=== PATIENT | female | born 1930 | race Caucasian/White ===

== ENCOUNTER → 2016-08-09 | Outpatient (CLI) | payer MEDICARE, OTHER ==
[~2016-08-09] MED LIST: AMLO5TAB2 PO; ASPI1TAB69 PO; CALC500T42 PO; CLON0.1T PO; FENO145T2 PO; FERR325T PO; LOSA50TA2 PO; LOVA20TA PO; MACR100C2 PO; METO50TA PO; OCUVTAB4 PO; POTA10CA PO; VITA500T PO
[2016-08-09 16:44] LABS: ALT (GPT) 25 U/L (10-53); ANION GAP 8 MEQ/L (5-15); AST (GOT) 22 U/L (15-37); BLOOD UREA NITROGEN 33 MG/DL (7-18); CHLORIDE 109 MEQ/L (98-107); GLOMERULAR FILTRATION RATE 41 ML/MIN (>89); GLUCOSE,FASTING 84 MG/DL (74-99); POTASSIUM 4.9 MEQ/L (3.5-5.1); SODIUM (NA) 141 MEQ/L (136-145)
[2016-08-09 16:47] LABS: HEMATOCRIT 43.8 % (35.0-46.0); MEAN CELL VOLUME 87.5 FL (80.0-100.0); MEAN CORPUSCULAR HEMOGLOBIN 29.2 PG (27.0-34.0); MEAN CORPUSCULAR HGB CONC 33.4 % (32.0-36.0); PLATELET COUNT 370 TH/MM3 (150-450); RED BLOOD COUNT 5.01 MIL/MM3 (4.00-5.30); REVIEW FLAG FINAL; WHITE BLOOD COUNT 7.7 TH/MM3 (4.0-11.0)
[2016-08-09 16:54] LABS: ALKALINE PHOSPHATASE 54 U/L (45-117); HDL CHOLESTEROL 51.7 MG/DL (40.0-60.0); LDL CHOLESTEROL 174 MG/DL (0-99); TOTAL BILIRUBIN ADULT 0.5 MG/DL (0.2-1.0)
== END ==
LOC: PLAB 11:09
PROVIDERS: ATTEND Family Medicine
DX: D63.8 Anemia in other chronic diseases classified elsewhere (principal); E78.2 Mixed hyperlipidemia; I49.9 Cardiac arrhythmia, unspecified
CPT/HCPCS: 36415; 80053; 80061; 84443; 85027

== ENCOUNTER 2016-10-02 23:50 | Inpatient (IN) | payer MEDICARE, OTHER ==
[~2016-10-02] VITALS: Ht 165.1 cm; Wt 78.2 kg
[2016-10-03] VITALS (12 sets, daily range): BP systolic 136–216; BP diastolic 74–105; PULSE 53–86; RESP 16–18; TEMP 95.8–98.3; O2SAT 92–99
[2016-10-03] MEDS ORDERED: SODIUM CHLORIDE 0.9% FLUSH 10 ML FLUSH IVF PRN
[2016-10-03] MEDS ORDERED: ONDANSETRON HCL 4 MG/2 ML VIAL IV ONE
[2016-10-03] MEDS ORDERED: ENALAPRILAT 2.5 MG/2 ML VIAL IV PUSH ONE
--- NOTE | 2016-10-03 00:40 | PD ---
HPI Chief Complaint: General Weakness Time Seen by Provider: 23:54 Travel History International Travel<30 days: No Contact w/Intl Traveler<30days: No Traveled to known affect area: No History of Present Illness HPI The patient is an 86-year-old female that felt some midline sharp chest pain yesterday afternoon but this resolved. Later on tonight she got weak and fell to the floor but she did not lose consciousness and she remained conscious during the entire episode. She said she gradually let her self go to the ground and did not hurt herself. Later on she felt nauseated but this has now resolved. She feels fine now. She did not take her blood pressure medicines earlier tonight. She denies any shortness of breath. The patient lives alone at home. PFSH Past Medical History Anemia: Yes Blood Disorders: No Cancer: Yes (skin cancer basal cell ) Cardiovascular Problems: Yes (OK,htn on med) High Cholesterol: Yes Diabetes: No Diminished Hearing: Yes ([place]) Endocrine: No Gastrointestinal Disorders: Yes (HITAL HERNIA) GERD: Yes Glaucoma: No Genitourinary: No Hepatitis: No Hiatal Hernia: Yes Hypertension: Yes Immune Disorder: No Medical other: Yes (arthritis,reflux) Psychiatric: No Reproductive: No Respiratory: No Immunizations Current: Yes Thyroid Disease: No Tetanus Vaccination: Unknown Influenza Vaccination: No ?: Not Menopausal: Yes Past Surgical History Abdominal Surgery: Yes (gallbladder) Cardiac Surgery: No Cholecystectomy: Yes Ear Surgery: No Endocrine Surgery: Yes (RIGHT CTR) Eye Surgery: No Genitourinary Surgery: No Gynecologic Surgery: Yes (d and c) Neurologic Surgery: No Oral Surgery: No Pacemaker: No Thoracic Surgery: No Other Surgery: Yes Social History Alcohol Use: No Tobacco Use: No Substance Use: No Allergies-Medications (Allergen,Severity, Reaction): Coded Allergies: Sulfa (Sulfonamide Antibiotics) (Unverified Allergy, Severe, STOMACH UPSET , 10/03/16) aspirin (Unverified Allergy, Severe, Bleeding, 10/03/16) Reported Meds & Prescriptions Reported Meds & Active Scripts Active Reported Aspirin 81 Mg Chew 81 Mg CHEW DAILY Fluoxetine (Fluoxetine HCl) 20 Mg Capsule 20 Mg PO DAILY Preservision Areds (Multiple Vitamins W/ Minerals) 1 Tab Unknown Dose PO DIRECTED Lovastatin 20 Mg Tab 20 Mg PO DAILY Fenofibrate 145 Mg Tab 145 Mg PO DAILY Amlodipine (Amlodipine Besylate) 5 Mg Tab 5 Mg PO DAILY Losartan-Hydrochlorothiazide 50-12.5 Mg Tab 1 Tab PO DAILY Potassium Chloride ER (Potassium Chloride) 10 Meq Cap 10 Meq PO BID Metoprolol Tartrate 50 Mg Tab 100 Mg PO BID Clonidine (Clonidine HCl) 0.1 Mg Tab 0.1 Mg PO BID Review of Systems Except as stated in HPI: all other systems reviewed are Neg Physical Exam Narrative GENERAL: The patient is alert, oriented 3 in no apparent distress. Initial blood pressure as she just came in was 216/105 but repeat is 166/76. The rest of her vital signs are normal. SKIN: Focused skin assessment warm/dry. No skin rashes present. HEAD: Atraumatic. Normocephalic. EYES: Pupils equal and round. No scleral icterus. No injection or drainage. ENT: No nasal bleeding or discharge. Mucous membranes pink and moist. NECK: Trachea midline. No JVD. CARDIOVASCULAR: Regular rate and rhythm. No murmur appreciated. RESPIRATORY: No accessory muscle use. Clear to auscultation. Breath sounds equal bilaterally. GASTROINTESTINAL: Abdomen soft, non-tender, nondistended. Hepatic and splenic margins not palpable. No guarding or rebound is present. MUSCULOSKELETAL: No obvious deformities. No clubbing. No cyanosis. No edema. NEUROLOGICAL: Awake and alert. No obvious cranial nerve deficits. Motor grossly within normal limits. Normal speech. PSYCHIATRIC: Appropriate mood and affect; insight and judgment normal. Data Data Last Documented VS Vital Signs Date Time Temp Pulse Resp B/P (MAP) Pulse Ox O2 Delivery O2 Flow Rate FiO2 10/03/16 01:05 78 18 185/74 (111) 98 Nasal Cannula 2.00 10/03/16 00:08 98.0 Orders Orders Electrocardiogram (10/02/16 23:54) B-Type Natriuretic Peptide (10/02/16 23:54) Ckmb (Isoenzyme) Profile (10/02/16 23:54) Complete Blood Count With Diff (10/02/16 23:54) Comprehensive Metabolic Panel (10/02/16 23:54) Magnesium (Mg) (10/02/16 23:54) Troponin I (10/02/16 23:54) Ecg Monitoring (10/02/16 23:54) Bilateral Bp Monitoring (10/02/16 23:54) Iv Access Insert/Monitor (10/02/16 23:54) Oximetry (10/02/16 23:54) Oxygen Administration (10/02/16 23:54) Sodium Chloride 0.9% Flush (Ns Flush) (10/03/16 00:00) Chest, Pa & Lat (10/02/16 23:54) Ondansetron Inj (Zofran Inj) (10/03/16 00:00) Enalaprilat Inj (Vasotec Inj) (10/03/16 00:00) Admit Order (Ed Use Only) (10/03/16 02:19) Labs Laboratory Tests Test 10/03/16 00:30 White Blood Count 10.5 TH/MM3 Red Blood Count 5.16 MIL/MM3 Hemoglobin 15.0 GM/DL Hematocrit 44.5 % Mean Corpuscular Volume 86.1 FL Mean Corpuscular Hemoglobin 29.0 PG Mean Corpuscular Hemoglobin Concent 33.6 % Red Cell Distribution Width 12.9 % Platelet Count 363 TH/MM3 Mean Platelet Volume 8.8 FL Neutrophils (%) (Auto) 71.8 % Lymphocytes (%) (Auto) 16.4 % Monocytes (%) (Auto) 8.5 % Eosinophils (%) (Auto) 2.0 % Basophils (%) (Auto) 1.3 % Neutrophils # (Auto) 7.6 TH/MM3 Lymphocytes # (Auto) 1.7 TH/MM3 Monocytes # (Auto) 0.9 TH/MM3 Eosinophils # (Auto) 0.2 TH/MM3 Basophils # (Auto) 0.1 TH/MM3 CBC Comment DIFF FINAL Differential Comment Blood Urea Nitrogen 43 MG/DL Creatinine 1.30 MG/DL Random Glucose 148 MG/DL Total Protein 7.4 GM/DL Albumin 3.9 GM/DL Calcium Level 10.5 MG/DL Magnesium Level 2.0 MG/DL Alkaline Phosphatase 52 U/L Aspartate Amino Transf (AST/SGOT) 19 U/L Alanine Aminotransferase (ALT/SGPT) 27 U/L Total Bilirubin 0.4 MG/DL Sodium Level 141 MEQ/L Potassium Level 3.8 MEQ/L Chloride Level 109 MEQ/L Carbon Dioxide Level 24.2 MEQ/L Anion Gap 8 MEQ/L Estimat Glomerular Filtration Rate 39 ML/MIN Total Creatine Kinase 78 U/L Troponin I 0.07 NG/ML B-Type Natriuretic Peptide 250 PG/ML MDM Medical Decision Making Medical Screen Exam Complete: Yes Emergency Medical Condition: Yes Medical Record Reviewed: Yes Interpretation(s) The CBC is normal. The BUN is 43, creatinine 1.3, GFR of 39, glucose 148, calcium 10.5 but the rest of the complete metabolic profile is normal. The BNP is 250 and the troponin I is 0.07. The chest x-ray shows moderate to large hiatal hernia with basilar atelectasis but normal heart size and no evidence of congestive heart failure. The EKG shows left ventricular hypertrophy with a ventricular rate of 77. The EKG shows no change from an EKG done on 12/15/15. Differential Diagnosis Postural hypotension, vasovagal reaction, acute coronary syndrome, atypical chest pain, near syncopal spell, electrolyte disorder, hypo-/hyperglycemia, renal insufficiency Narrative Course The patient is asymptomatic. She does have a minimal troponin I elevation. Diagnosis Primary Impression: Chest pain Additional Impressions: Elevated troponin I level Near syncope Jose Lynne MD Oct 03, 2016 00:40
--- NOTE | 2016-10-03 00:41 | RADRPT ---
EXAM DATE/TIME: 10/03/2016 00:11 [facility] COMPARISON: CHEST SINGLE AP, July 25, 2015, 6:51. INDICATIONS : Chest pain. MEDICAL HISTORY : Hypertension. Myocardial infarction. SURGICAL HISTORY : Cholecystectomy. ENCOUNTER: Initial ACUITY: 1 day PAIN SCORE: 5/10 LOCATION: Bilateral chest FINDINGS: PA and lateral views of the chest demonstrate moderate size hiatal hernia. There is basilar density m ost characteristic of atelectasis. No significant effusion. No pneumothorax. Heart size upper limits normal. CONCLUSION: 1. Moderate to large hiatal hernia with basal atelectasis. Damian Waterman MD on October 03, 2016 at 0:38 Board Certified Radiologist. This report was verified electronically.
[2016-10-03 00:53] LABS: AUTOMATED NEUTROPHIL # 7.6 TH/MM3 (1.8-7.7); BASOPHIL # 0.1 TH/MM3 (0-0.2); BASOPHIL % 1.3 % (0.0-2.0); EOSINOPHIL # 0.2 TH/MM3 (0-0.4); HEMATOCRIT 44.5 % (35.0-46.0); HEMO FLAGS DIFF FINAL; LYMPH % 16.4 % (9.0-44.0); LYMPHOCYTE # 1.7 TH/MM3 (1.0-4.8); MEAN CELL VOLUME 86.1 FL (80.0-100.0); MEAN CORPUSCULAR HGB CONC 33.6 % (32.0-36.0); MONO % 8.5 % (0.0-8.0); NEUT % 71.8 % (16.0-70.0); PLATELET COUNT 363 TH/MM3 (150-450); RED BLOOD COUNT 5.16 MIL/MM3 (4.00-5.30); RED CELL DISTRIBUTION WIDTH 12.9 % (11.6-17.2); WHITE BLOOD COUNT 10.5 TH/MM3 (4.0-11.0)
[2016-10-03 00:58] LABS: CHLORIDE 109 MEQ/L (98-107); POTASSIUM 3.8 MEQ/L (3.5-5.1); SODIUM (NA) 141 MEQ/L (136-145)
[2016-10-03 01:01] LABS: ANION GAP 8 MEQ/L (5-15); BICARBONATE 24.2 MEQ/L (21.0-32.0); BLOOD UREA NITROGEN 43 MG/DL (7-18)
[2016-10-03] MEDS ORDERED: FLUO20CA12 PO (01:02)
[2016-10-03] MEDS ORDERED: ASPI81CH CHEW (01:02)
[2016-10-03 01:04] LABS: ALT (GPT) 27 U/L (10-53); AST (GOT) 19 U/L (15-37); GLOMERULAR FILTRATION RATE 39 ML/MIN (>89)
[2016-10-03 01:06] LABS: TOTAL BILIRUBIN ADULT 0.4 MG/DL (0.2-1.0)
[2016-10-03 01:07] LABS: ALKALINE PHOSPHATASE 52 U/L (45-117)
[2016-10-03 01:14] LABS: CREATINE KINASE 78 U/L (26-192)
[2016-10-03] MEDS ORDERED: NITROGLYCERIN 0.4 MG SL 25 TABS/BTL SL PRN (02:30)
[2016-10-03] MEDS ORDERED: ACETAMINOPHEN 500 MG CPLT PO PRN (02:30)
[2016-10-03] MEDS ORDERED: SODIUM CHLORIDE 0.9% FLUSH 10 ML FLUSH IV FLUSH PRN (02:30)
[2016-10-03] MEDS ORDERED: HEPARIN SODIUM - SQ 10,000 UNITS/ML VIAL SQ SCH (02:30)
[2016-10-03] MEDS ORDERED: ONDANSETRON HCL 4 MG/2 ML VIAL IV PUSH PRN (02:30)
[2016-10-03] MEDS: FLUoxetine HCL 20 MG CAP PO SCH ×2 (09:00→09:10)
[2016-10-03] MEDS ORDERED: ASPIRIN 81 MG CHEW TAB CHEW SCH (09:00)
[2016-10-03] MEDS: PRAVASTATIN SOD 20 MG TAB PO SCH (09:00)
[2016-10-03] MEDS: amLODIPine BESYLATE 5 MG TAB PO SCH (09:09)
[2016-10-03] MEDS: cloNIDine HCL 0.1 MG TAB PO SCH ×2 (09:09→21:26)
[2016-10-03] MEDS: FENOFIBRATE 145 MG TAB PO SCH (09:09)
[2016-10-03] MEDS: METOPROLOL TARTRATE 100 MG TAB PO SCH ×2 (09:10→21:00)
[2016-10-03] MEDS: FAMOTIDINE 20 MG TAB PO SCH ×2 (09:13→21:25)
[2016-10-03] MEDS: SODIUM CHLORIDE 0.9% FLUSH 10 ML FLUSH IV FLUSH SCH ×2 (09:13→21:27)
[2016-10-03] MEDS ORDERED: NON-FORMULARY DRUG (Losartan-Hydrochlorothiazide 1 TAB) PO SCH (14:45)
--- NOTE | 2016-10-03 14:50 | HHI.HP ---
[facility] Service [facility] Primary Care Physician Norris Ceja MD Admission Diagnosis chest pain, elevated troponin I Diagnoses: Chief Complaint: Weakness Travel History International Travel<30 Days: No Contact w/Intl Traveler <30 Da: No Traveled to Known Affected Are: No History of Present Illness Patient is an 86-year-old female who was outside yesterday and had some right sided chest pain which was sharp and brief and resolve spontaneously. She went outside to do some work around her home and was weak and fell to the ground without losing consciousness. A friend found her and brought her daughter to check on her and then they came to the emergency room. Patient admits that she has been feeling weak and has been having difficulty keeping up with her home medications. She takes blood pressure medicines on arrival her blood pressure was 216/105. She did not take her blood pressure medicines all day because she was outside and could not get back in the house. Here she is alert and oriented without any complaints of chest pain or shortness of breath or dizziness or dyspnea and there is no new issues overnight. Unfortunately patient has had elevated cardiac enzymes and she is arrived. There is no evidence of rhabdomyolysis but her cardiac troponin has steadily increased without complaints of chest pain without evidence of ischemia on her EKG Review of Systems Constitutional: DENIES: Diaphoretic episodes, Fatigue, Fever, Weight gain, Weight loss, Chills, Dizziness, Change in appetite, Night Sweats Endocrine: DENIES: Abnorml menstrual pattern, Heat/cold intolerance, Polydipsia , Polyuria, Polyphagia Eyes: DENIES: Blurred vision, Diplopia, Eye inflammation, Eye pain, Vision loss , Photosensitivity, Double Vision Ears, nose, mouth, throat: DENIES: Tinnitus, Hearing loss, Vertigo, Nasal discharge, Oral lesions, Throat pain, Hoarseness, Ear Pain, Running Nose, Epistaxis, Sinus Pain, Toothache, Odynophagia Respiratory: DENIES: Apneas, Cough, Snoring, Wheezing, Hemoptysis, Sputum production, Shortness of breath Cardiovascular: COMPLAINS OF: Chest pain (vaguely described right sided pain), DENIES: Palpitations, Syncope, Dyspnea on Exertion, PND, Lower Extremity Edema, Orthopnea, Claudication Gastrointestinal: DENIES: Abdominal pain, Black stools, Bloody stools, Constipation, Diarrhea, Nausea, Vomiting, Difficulty Swallowing, Anorexia Genitourinary: DENIES: Abnormal vaginal bleeding, Dysmenorrhea, Dyspareunia, Sexual dysfunction, Urinary frequency, Urinary incontinence, Urgency, Hematuria , Dysuria, Nocturia, Vaginal discharge Musculoskeletal: DENIES: Joint pain, Muscle aches, Stiffness, Joint Swelling, Back pain, Neck pain Integumentary: DENIES: Abnormal pigmentation, Pruritus, Rash, Nail changes, Breast masses, Breast skin changes, Nipple discharge Hematologic/lymphatic: DENIES: Bruising, Lymphadenopathy Immunologic/allergic: DENIES: Eczema, Urticaria Neurologic: DENIES: Abnormal gait, Headache, Localized weakness, Paresthesias, Seizures, Speech Problems, Tremor, Poor Balance Psychiatric: DENIES: Anxiety, Confusion, Mood changes, Depression, Hallucinations, Agitation, Suicidal Ideation, Homicidal Ideation, Delusions Except as stated in HPI: all other systems reviewed are Neg Past Family Social History Past Medical History Cholecystectomy, gynecological Past Surgical History Hiatal hernia, basal cell carcinoma, hypertension, difficult to control, hyperlipidemia, anxiety/depression Reported Medications reviewed in the medical record, skipped her home medications yesterday Allergies: Coded Allergies: Sulfa (Sulfonamide Antibiotics) (Unverified Allergy, Severe, STOMACH UPSET , 10/03/16) Active Ordered Medications Reviewed in the medical record Family History Does not know Social History Lives alone, no tobacco or alcohol dependency Physical Exam Vital Signs Vital Signs Date Time Temp Pulse Resp B/P (MAP) Pulse Ox O2 Delivery O2 Flow Rate FiO2 10/03/16 12:00 97.0 77 18 188/80 (116) 99 10/03/16 08:06 73 10/03/16 08:00 96.8 67 18 209/74 (119) 95 10/03/16 06:15 70 10/03/16 04:00 95.8 70 18 158/88 (111) 92 10/03/16 03:34 77 16 176/80 (112) 98 Nasal Cannula 2.00 10/03/16 01:05 78 18 185/74 (111) 98 Nasal Cannula 2.00 10/03/16 00:30 78 18 166/76 (106) 98 Room Air 10/03/16 00:30 78 18 166/76 (106) 98 Nasal Cannula 2.00 10/03/16 00:30 78 16 100 2.00 10/03/16 00:30 97 Nasal Cannula 2.00 10/03/16 00:08 98.0 86 18 216/105 (142) 96 Physical Exam GENERAL: This is a well-nourished, well-developed patient, in no apparent distress. SKIN: No rashes, ecchymoses or lesions. Cool and dry. HEAD: Atraumatic. Normocephalic. No temporal or scalp tenderness. EYES: Pupils equal round and reactive. Extraocular motions intact. No scleral icterus. No injection or drainage. ENT: Nose without bleeding, purulent drainage or septal hematoma. Throat without erythema, tonsillar hypertrophy or exudate. Uvula midline. Airway patent. NECK: Trachea midline. No JVD or lymphadenopathy. Supple, nontender, no meningeal signs. CARDIOVASCULAR: Regular rate and rhythm without murmurs, gallops, or rubs. RESPIRATORY: Clear to auscultation. Breath sounds equal bilaterally. No wheezes , rales, or rhonchi. GASTROINTESTINAL: Abdomen soft, non-tender, nondistended. No hepato-splenomegaly , or palpable masses. No guarding. MUSCULOSKELETAL: Extremities without clubbing, cyanosis, or edema. No joint tenderness, effusion, or edema noted. No calf tenderness. Negative Homans sign bilaterally. NEUROLOGICAL: Awake and alert. Cranial nerves II through XII intact. Motor and sensory grossly within normal limits. Five out of 5 muscle strength in all muscle groups. Normal speech. Laboratory Laboratory Tests Test 10/03/16 00:30 10/03/16 06:45 10/03/16 12:00 White Blood Count 10.5 Red Blood Count 5.16 Hemoglobin 15.0 Hematocrit 44.5 Mean Corpuscular Volume 86.1 Mean Corpuscular Hemoglobin 29.0 Mean Corpuscular Hemoglobin Concent 33.6 Red Cell Distribution Width 12.9 Platelet Count 363 Mean Platelet Volume 8.8 Neutrophils (%) (Auto) 71.8 Lymphocytes (%) (Auto) 16.4 Monocytes (%) (Auto) 8.5 Eosinophils (%) (Auto) 2.0 Basophils (%) (Auto) 1.3 Neutrophils # (Auto) 7.6 Lymphocytes # (Auto) 1.7 Monocytes # (Auto) 0.9 Eosinophils # (Auto) 0.2 Basophils # (Auto) 0.1 CBC Comment DIFF FINAL Differential Comment Blood Urea Nitrogen 43 Creatinine 1.30 Random Glucose 148 Total Protein 7.4 Albumin 3.9 Calcium Level 10.5 Magnesium Level 2.0 Alkaline Phosphatase 52 Aspartate Amino Transf (AST/SGOT) 19 Alanine Aminotransferase (ALT/SGPT) 27 Total Bilirubin 0.4 Sodium Level 141 Potassium Level 3.8 Chloride Level 109 Carbon Dioxide Level 24.2 Anion Gap 8 Estimat Glomerular Filtration Rate 39 Total Creatine Kinase 78 151 147 Troponin I 0.07 0.55 0.67 B-Type Natriuretic Peptide 250 Result Diagram: 10/03/160 10/03/16 003 Imaging Last Impressions Chest X-Ray 10/02/16 8234 Signed Impressions: Service Date/Time: Saturday, October 03, 2016 00:11 - CONCLUSION: 1. Moderate to large hiatal hernia with basal atelectasis. MD Reji Samson VTE Risk Assessment Caprini VTE Risk Assessment: Mod/High Risk (score >= 2) Caprini Risk Assessment Model Point Value = 1 Point Value = 2 Point Value = 3 Point Value = 5 Age 41-60 Minor surgery BMI > 25 kg/m2 Swollen legs Varicose veins or History of unexplained or recurrent spontaneous Oral contraceptives or hormone replacement Sepsis (< 1 month) Serious lung disease, including pneumonia (< 1 month) Abnormal pulmonary function Acute myocardial infarction Congestive heart failure (< 1 month) History of inflammatory bowel disease Medical patient at bed rest Age 61-74 Arthroscopic surgery Major open surgery (> 45 min) Laparoscopic surgery (> 45 min) Malignancy Confined to bed (> 72 hours) Immobilizing plaster cast Central venous access Age >= 75 History of VTE Family history of VTE Factor V Leiden Prothrombin [id number] Lupus anticoagulant Anticardiolipin antibodies Elevated serum homocysteine Heparin-induced thrombocytopenia Other congenital or acquired thrombophilia Stroke (< 1 month) Elective arthroplasty Hip, pelvis, or leg fracture Acute spinal cord injury (< 1 month) Prophylaxis Regimen Total Risk Factor Score Risk Level Prophylaxis Regimen 0-1 Low Early ambulation 2 Moderate Order ONE of the following: *Sequential Compression Device (SCD) *Heparin 5000 units SQ BID 3-4 Higher Order ONE of the following medications: *Heparin 5000 units SQ TID *Enoxaparin/Lovenox 40 mg SQ daily (WT < 150 kg, CrCl > 30 mL/min) *Enoxaparin/Lovenox 30 mg SQ daily (WT < 150 kg, CrCl > 10-29 mL/min) *Enoxaparin/Lovenox 30 mg SQ BID (WT < 150 kg, CrCl > 30 mL/min) AND/OR *Sequential Compression Device (SCD) 5 or more Highest Order ONE of the following medications: *Heparin 5000 units SQ TID (Preferred with Epidurals) *Enoxaparin/Lovenox 40 mg SQ daily (WT < 150 kg, CrCl > 30 mL/min) *Enoxaparin/Lovenox 30 mg SQ daily (WT < 150 kg, CrCl > 10-29 mL/min) *Enoxaparin/Lovenox 30 mg SQ BID (WT < 150 kg, CrCl > 30 mL/min) AND *Sequential Compression Device (SCD) Assessment and Plan Problem List: (1) Elevated troponin I level ICD Code: R74.8 - Abnormal levels of other serum enzymes Status: Acute Plan: Concerning for acute coronary syndrome, non-ST elevation [facility] Etiology unclear, no evidence of rhabdomyolysis in a patient with history of hypertension which is currently quite elevated Patient also with vague right sided chest discomfort Cardiology to evaluate patient EKG not consistent with ischemic changes or reciprocal changes. Patient has evidence of hypertension and left atrial hypertrophy Last cardiac evaluation 07/2013 Aspirin 325, Plavix, Lovenox, metoprolol, nitroglycerin as needed (2) Near syncope ICD Code: R55 - Syncope and collapse Status: Acute Plan: Vaguely described her patient. May have any cardiac event. We'll continue to follow on telemetry Cardiac workup in progress (3) Hiatal hernia ICD Code: K44.9 - Hiatal hernia Status: Acute (4) HTN (hypertension) ICD Code: I10 - Essential (primary) hypertension Plan: continue losartan, HCTZ, metoprolol, amlodipine and clonidine Blood pressures uncontrolled, we'll add hydralazine as needed Assessment and Plan Patient will need to be admitted to the hospital due to steadily increased cardiac enzymes and concern for non-ST elevation [place] Continue with medical management and cardiac consultation plans Code Status Full code Discussed Condition With patient Physician Certification 2 Midnight Certification Type: Admission for Inpatient Services Order for Inpatient Services The services are ordered in accordance with Medicare regulations or non- Medicare payer requirements, as applicable. In the case of services not specified as inpatient-only, they are appropriately provided as inpatient services in accordance with the 2-midnight benchmark. Estimated LOS (days): 2 2 days is the estimated time the patient will need to remain in the hospital, assuming treatment plan goals are met and no additional complications. Post-Hospital Plan: Felicia Killian MD Oct 03, 2016 14:50
[2016-10-03] MEDS ORDERED: hydrALAZINE HCL 25 MG TAB PO PRN (15:45)
[2016-10-03] MEDS ORDERED: LOSARTAN 50 MG TAB PO SCH (16:00)
[2016-10-03] MEDS ORDERED: HYDROCHLOROTHIAZIDE 12.5 MG CAP PO SCH (16:00)
[2016-10-03] MEDS ORDERED: ENOXAPARIN SODIUM 120 MG/0.8 ML SYRINGE SQ SCH (16:00)
[2016-10-03] MEDS: ENOXAPARIN SODIUM 100 MG/ML SYRINGE SQ SCH (16:02)
[2016-10-03] MEDS: SODIUM CHLOR 0.45% 1000 ML INJ 1,000 ML IV SCH ×2 (16:02→21:29)
[2016-10-03] MEDS: HYDROCHLOROTHIAZIDE 12.5 MG CAP PO SCH (16:03)
--- NOTE | 2016-10-03 19:34 | EKG ---
Date Performed: 10/03/2016 Time Performed: 06:26:37 PTAGE: 86 years EKG: Sinus rhythm LEFT VENTRICULAR HYPERTROPHY AND ST-T CHANGE ABNORMAL ECG PREVIOUS TRACING : 10/03/2016 00.06 Compared to prior tracing no significant change DOCTOR: Minerva Mejia Interpretating Date/Time 10/03/2016 19:31:52
--- NOTE | 2016-10-03 19:39 | EKG ---
Date Performed: 10/03/2016 Time Performed: 00:06:04 PTAGE: 86 years EKG: Sinus rhythm LEFT VENTRICULAR HYPERTROPHY AND ST-T CHANGE ABNORMAL ECG PREVIOUS TRACING : 12/15/2015 15.27 Compared to prior tracing no significant change DOCTOR: Minerva Mejia Interpretating Date/Time 10/03/2016 19:39:00
--- NOTE | 2016-10-03 20:25 | EKG ---
Date Performed: 10/03/2016 Time Performed: 11:58:05 PTAGE: 86 years EKG: SINUS BRADYCARDIA LEFT VENTRICULAR HYPERTROPHY AND ST-T CHANGE ABNORMAL ECG PREVIOUS TRACING : 10/03/2016 06.26 Compared to the previous tracing rate slower DOCTOR: Minerva Mejia Interpretating Date/Time 10/03/2016 20:24:13
[2016-10-03] MEDS: LOSARTAN 50 MG TAB PO SCH (21:27)
--- NOTE | 2016-10-03 21:29 | HHI.PR ---
Subjective Remarks DRAFT not seen F/U CP and HTN Objective Vitals Vital Signs Date Time Temp Pulse Resp B/P (MAP) Pulse Ox O2 Delivery O2 Flow Rate FiO2 10/03/16 16:00 96.0 53 18 136/88 (104) 95 10/03/16 12:00 97.0 77 18 188/80 (116) 99 10/03/16 08:06 73 10/03/16 08:00 96.8 67 18 209/74 (119) 95 10/03/16 06:15 70 10/03/16 04:00 95.8 70 18 158/88 (111) 92 10/03/16 03:34 77 16 176/80 (112) 98 Nasal Cannula 2.00 10/03/16 01:05 78 18 185/74 (111) 98 Nasal Cannula 2.00 10/03/16 00:30 78 18 166/76 (106) 98 Room Air 10/03/16 00:30 78 18 166/76 (106) 98 Nasal Cannula 2.00 10/03/16 00:30 78 16 100 2.00 10/03/16 00:30 97 Nasal Cannula 2.00 10/03/16 00:08 98.0 86 18 216/105 (142) 96 I/O 10/02/16 10/02/16 10/02/16 10/03/16 10/03/16 10/03/16 06:59 14:59 22:59 06:59 14:59 22:59 Intake Total 136 ml Balance 136 ml Intake Oral 0 ml IV Total 136 ml # Voids 3 Result Diagram: 10/03/16 0030 10/03/16 0030 A/P Problem List: (1) Elevated troponin I level ICD Code: R74.8 - Abnormal levels of other serum enzymes Status: Acute (2) Near syncope ICD Code: R55 - Syncope and collapse Status: Acute (3) Hiatal hernia ICD Code: K44.9 - Hiatal hernia Status: Acute (4) HTN (hypertension) ICD Code: I10 - Essential (primary) hypertension Assessment and Plan (1) Elevated troponin I level Concerning for acute coronary syndrome, non-ST elevation CT Etiology unclear, no evidence of rhabdomyolysis in a patient with history of hypertension which is currently quite elevated Patient also with vague right sided chest discomfort Cardiology to evaluate patient EKG not consistent with ischemic changes or reciprocal changes. Patient has evidence of hypertension and left atrial hypertrophy Last cardiac evaluation 07/2013 Aspirin 325, Plavix, Lovenox, metoprolol, nitroglycerin as needed (2) Near syncope Vaguely described. May have cardiac event. We'll continue to follow on telemetry Cardiac workup in progress (3) Hiatal hernia (4) HTN (hypertension) continue losartan, HCTZ, metoprolol, amlodipine and clonidine Blood pressures uncontrolled, we'll add hydralazine as needed Assessment and Plan Patient will need to be admitted to the hospital due to steadily increased cardiac enzymes and concern for non-ST elevation CT Continue with medical management and cardiac consultation plans Alejandro Williamson MD Oct 03, 2016 21:29
[2016-10-04] VITALS: BP 138/49; PULSE 55; RESP 16; TEMP 99; O2SAT 95
[2016-10-04 04:00] VITALS: BP 126/60; PULSE 51; RESP 18; TEMP 97.5; O2SAT 95
[2016-10-04] MEDS: ENOXAPARIN SODIUM 100 MG/ML SYRINGE SQ SCH (05:50)
[2016-10-04 06:50] LABS: POTASSIUM 3.9 MEQ/L (3.5-5.1)
[2016-10-04 06:55] LABS: BICARBONATE 25.5 MEQ/L (21.0-32.0)
--- NOTE | 2016-10-04 07:09 | MB ---
cc: LISET MADSEN M.D. DATE OF CONSULTATION October 03, 2016 REASON FOR CONSULTATION Elevated cardiac enzymes and hypertension. HISTORY Ms. Medeiros is an 86-year-old white female well-known to me with a history of nonobstructive coronary artery disease, previous non-ST elevation myocardial infarction in 2013, abnormal EKG, hypertensive heart disease and mitral regurgitation. I most recently saw the patient in the office on September 19 and she was doing well at that time except for slightly elevated blood pressure. She says she was doing well up until yesterday. The story the patient gives me about yesterday's events are completely different than the story she apparently related to the emergency room physician as well as the hospital position. I spoke with the patient's daughter who gave me her rendition of what occurred yesterday. According to the patient's daughter, the patient locked herself out of the house around 8 o'clock yesterday morning. She was in her flannel pajamas and outside in the yard the entire day. She did not seek any help from the neighbors because she was not dressed. She apparently did not take her medication or eat or drink anything throughout the day except some water from the hose. The daughter tried to contact her throughout the day and was unsuccessful so apparently drove over to her house to see what was going on and found her outside. She was doing okay except said she was a bit thirsty and got her back into her house. The daughter stayed a bit but the patient said she was doing fine and the daughter finally went home only to find out that the patient called the ambulance a few hours later. There is some question about whether or not she had some right-sided chest pain, although the patient now denies that and her daughter says she did not relate that complaint to her at all. She has been having some numbness and tingling in the tips of her fingers on both hands intermittently which she does relate to me today. She denies any chest pains or shortness of breath. Apparently she called the ambulance because she was weak and fell to the floor and had trouble getting back up. She denies any loss of consciousness and she did not injure herself in any way. Today she says she is feeling back to normal and she has been ambulating to the bathroom and back to her bed without difficulty. She has had serial cardiac enzymes since admission last night and her troponin was initially 0.07 with a BNP of 250 and a total CPK of 78 and that has risen to a total CPK of 147, a troponin-I of 0.67 at noon today. Reviewing her previous records, she did have a similar event with an elevated troponin in the mid-3 range back in 2013. At that time she underwent cardiac catheterization which revealed mild nonobstructive three-vessel disease and she was treated medically at that time. Her ejection fraction has remained normal, in fact she had a stress test in my office last June 2015 that was completely normal with an ejection fraction of 58%. She has not complained of any exertional or resting angina. PAST MEDICAL HISTORY 1. As mentioned in the HPI. 2. She has also history of diverticulitis. 3. Large hiatal hernia. 4. Hip problems. 5. Cataracts. 6. Hyperlipidemia. Denies any previous history of stroke, TIA, diabetes, thyroid or liver disease. PAST SURGICAL HISTORY 1. Remote D&C. 2. Carpal tunnel remote. 3. Cardiac catheterization July 17, 2013, as mentioned, revealing mild nonobstructive coronary disease. That included 30% diffuse distal mid-LAD, 20% ramus intermedius and 30% right coronary artery. FAMILY HISTORY Father of heart problems, uncertain age. Mother at age 90 with heart trouble. No siblings. ALLERGIES None known. MEDICATIONS HERE 1. Aspirin 325 mg daily. 2. Clopidogrel 75 mg daily. 3. Losartan 50 mg daily. 4. Enoxaparin 120 mg subcu q.12 hours. 5. Hydrochlorothiazide 12.5 mg daily. 6. Norvasc 5 mg daily. 7. Tricor 145 mg daily. 8. Pravachol 20 mg daily. 9. Clonidine 0.1 mg p.o. b.i.d. 10. Lopressor 100 mg p.o. b.i.d. 11. Pepcid 10 mg b.i.d. 12. Sublingual nitroglycerin p.r.n. 13. Zofran 4 mg IV q.6 hours p.r.n. This medication list is somewhat different from my records from the office. SOCIAL HISTORY The patient denies tobacco, alcohol or illicit drug use at this time. She was exposed to secondhand smoke for a number of years from her . She is currently , living alone. Does no regular exercise. REVIEW OF SYSTEMS It appears her memory has been failing, according to the patient's daughter. It is uncertain whether she has been missing some of her medications. She has had occasional edema in the lower extremities toward the end of the day. Denies claudication. She has had some intermittent numbness and tingling of the tips of her fingers on both hands, sometimes worse in the morning. Denies any exertional or resting chest discomfort or dyspnea, orthopnea or PND type symptoms. Denies any bleeding or clotting disorders. Denies nausea, vomiting or diarrhea. Except for that mentioned in the HPI, complete 12-point review of systems otherwise negative. PHYSICAL EXAMINATION GENERAL: Physical exam reveals an at 86-year-old obese white female lying in bed in no distress at this time. VITAL SIGNS: Her blood pressure was 216/105 on presentation last night around midnight, right now it is 188/80, heart rate is 77 and regular, respiratory rate 18, temperature 97, ox saturation 99% on room air. HEENT: Head is normocephalic and atraumatic. Pupils equal and react to light. Sclerae anicteric. Extraocular movements intact. NECK: The neck is supple. There is no adenopathy. No jugular venous distension at 45 degrees. Carotid upstrokes are normal. No bruits. Thyroid exam is normal. LUNGS: Clear. HEART: PMI is nondisplaced. S1-S2 are normal. There is a holosystolic grade 2/6 systolic murmur left sternal border and apex. No diastolic murmurs, gallops or rubs. ABDOMEN: Obese. Bowel sounds present, soft, nontender. No hepatosplenomegaly, masses or bruits. EXTREMITIES: Adequate perfusion in the upper and lower extremities. The extremities are warm. No cyanosis or edema. EKG Shows a sinus bradycardia, rate of 54. There is LVH with repolarization abnormalities and anterior lateral ST-T-wave depressions with T-wave inversions. Abnormal EKG but this is really unchanged when compared to an EKG from my office. CHEST X-RAY Moderate to large hiatal hernia with basilar atelectasis. LABORATORY DATA CBC is normal. Chemistries - Sodium 141, potassium 3.8, chloride 109, CO2 24.2, BUN 43, creatinine 1.3. These are elevated or increased since labs from January with a BUN of 35 and a creatinine of 1.21. Magnesium 2.0, AST 19. Cardiac enzymes are as mentioned in the HPI. An echocardiogram January 31, 2015, showed normal left ventricular ejection fraction of 66% with left ventricular diastolic dysfunction, left atrial enlargement, mitral annular calcification with moderate +2-+3 mitral regurgitation and mild +1 tricuspid regurgitation, right ventricular systolic pressure of 37 mmHg. IMPRESSION 1. Elevated cardiac markers consistent with ACS (acute coronary syndrome). Cannot exclude type 2 [id number] myocardial infarction. 2. ASHD. 3. Hypertensive heart disease with uncontrolled hypertension. 4. Suspect heat exhaustion and dehydration from exposure. 5. Acute on chronic renal insufficiency. 6. Abnormal EKG, chronic. 7. OBS. 8. Suspected medication compliance issues. 9. Moderate mitral regurgitation. RECOMMENDATIONS I had a long discussion on the phone with the patient's daughter, Adriana, and she also conveys concerned about her mother's memory. We discussed the current events and findings. At this point we are going to continue conservative management and intravenous fluid hydration today. I am going to adjust her medications so that she is back on her home regimen to be sure her blood pressure is adequately controlled and observe her for another 12-24 hours here. If she has any recurrent symptoms, we may change plans but otherwise will continue with conservative management considering all of her recent testing. I will follow her with you. Further recommendations as required. Thank you for allowing us be in the care of this patient. MD CHINO Davidson/SONDRA /4:17 PM /6:36 AM
[2016-10-04 08:00] VITALS: BP 147/74; PULSE 54; RESP 18; TEMP 96.4; O2SAT 93
[2016-10-04] MEDS ORDERED: ASPIRIN 325 MG TAB PO SCH (09:00)
[2016-10-04] MEDS: FLUoxetine HCL 20 MG CAP PO SCH (09:15)
[2016-10-04] MEDS: PRAVASTATIN SOD 20 MG TAB PO SCH (09:15)
[2016-10-04] MEDS: cloNIDine HCL 0.1 MG TAB PO SCH ×2 (09:15→21:39)
[2016-10-04] MEDS: ASPIRIN 81 MG CHEW TAB PO SCH (09:16)
[2016-10-04] MEDS: LOSARTAN 50 MG TAB PO SCH ×2 (09:16→21:39)
[2016-10-04] MEDS: CLOPIDOGREL 75 MG TAB PO SCH (09:16)
[2016-10-04] MEDS: amLODIPine BESYLATE 5 MG TAB PO SCH (09:17)
[2016-10-04] MEDS: METOPROLOL TARTRATE 100 MG TAB PO SCH ×2 (09:17→21:39)
[2016-10-04] MEDS: FAMOTIDINE 20 MG TAB PO SCH ×2 (09:17→21:39)
[2016-10-04] MEDS: FENOFIBRATE 145 MG TAB PO SCH (09:18)
[2016-10-04] MEDS: SODIUM CHLORIDE 0.9% FLUSH 10 ML FLUSH IV FLUSH SCH ×2 (09:19→21:39)
[2016-10-04] MEDS: HYDROCHLOROTHIAZIDE 12.5 MG CAP PO SCH (09:19)
[2016-10-04 12:00] VITALS: BP 123/54; PULSE 57; RESP 18; TEMP 97; O2SAT 97
--- NOTE | 2016-10-04 13:03 | HHI.PR ---
Subjective Remarks Follow-up [place]. No further chest pain. Complains of nausea. Was dizzy earlier per RN BP was stable. Objective Vitals Vital Signs Date Time Temp Pulse Resp B/P (MAP) Pulse Ox O2 Delivery O2 Flow Rate FiO2 10/04/16 12:00 97.0 57 18 123/54 (77) 97 10/04/16 08:00 96.4 54 18 147/74 (98) 93 10/04/16 04:00 97.5 51 18 126/60 (82) 95 10/04/16 00:00 99.0 55 16 138/49 (78) 95 10/03/16 23:00 55 10/03/16 20:00 98.3 55 16 157/86 (109) 93 10/03/16 16:00 96.0 53 18 136/88 (104) 95 I/O 10/03/16 10/03/16 10/03/16 10/04/16 10/04/16 10/04/16 07:00 15:00 23:00 07:00 15:00 23:00 Intake Total 376 ml 100 ml Balance 376 ml 100 ml Intake Oral 240 ml 100 ml IV Total 136 ml # Voids 4 1 Result Diagram: 10/03/16 0030 10/04/16 0545 Imaging Last Impressions Chest X-Ray 10/02/16 6629 Signed Impressions: Service Date/Time: Monday, October 03, 2016 00:11 - CONCLUSION: 1. Moderate to large hiatal hernia with basal atelectasis. Damian Waterman MD Objective Remarks Well-developed, well-nourished in no distress on room air No JVD no bruit Regular rate and rhythm with systolic murmur Equal in expansion clear to auscultation Abdomen soft nontender Extremities no edema no deformities Alert and oriented nonfocal Procedures Non- A/P Problem List: (1) Elevated troponin I level ICD Code: R74.8 - Abnormal levels of other serum enzymes Status: Acute (2) Near syncope ICD Code: R55 - Syncope and collapse Status: Acute (3) Hiatal hernia ICD Code: K44.9 - Hiatal hernia Status: Acute (4) HTN (hypertension) ICD Code: I10 - Essential (primary) hypertension Assessment and Plan (1) Elevated troponin I level due to acute coronary syndrome, non-ST elevation [place] Cardiology recommended medical management at this time. Continue to monitor Last cardiac evaluation 07/2013 Aspirin 325, Plavix, Lovenox, metoprolol, nitroglycerin as needed and statin (2) Near syncope Vaguely described secondary to cardiac event. We'll continue to follow on telemetry (3) Hiatal hernia Stable continue Pepcid (4) HTN (hypertension) continue losartan, HCTZ, metoprolol, amlodipine and clonidine Blood pressures improved on metoprolol, Norvasc, clonidine, hydrocodone positive , losartan 5. Nausea and dizziness secondary to [place], uncontrolled hypertension and medicines. Antiemetics as needed. Neurochecks. Fall precautions and orthostatics Discharge Planning Possible discharge in the morning Alejandro Williamson MD Oct 04, 2016 13:03
--- NOTE | 2016-10-04 13:20 | HHI.DCPOC ---
Discharge Care Plan Diagnosis: (1) Elevated troponin I level Your Health Problems Are: Difficulty with ADL Exercise Tolerance Goals to Promote Your Health * To prevent worsening of your condition and complications * To maintain your health at the optimal level Directions to Meet Your Goals Take your medications as prescribed Follow your dietary instruction Follow activity as directed Keep your appointments as scheduled Take your immunizations and boosters as scheduled If your symptoms worsen call your PCP, if no PCP go to Urgent Care Center or Emergency Room Smoking is Dangerous to Your Health. Avoid second hand smoke Call the 24-hour hour crisis hotline for domestic abuse at Alejandro Williamson MD Oct 04, 2016 13:20
--- NOTE | 2016-10-04 13:21 | HHI.FF ---
Face to Face Verification Diagnosis: (1) HTN (hypertension) (2) Elevated troponin I level (3) Non-ST elevated myocardial infarction (non-STEMI) Physical Therapy Order: Evaluate and Treat, Improve ambulation, Strength and gait training Home Health Nursing Order: Medical education Signs/symptoms of disease process Medication education-adverse effect Nursing assessment with vital signs I have seen patient Marla Medeiros on 10/04/16. My clinical findings support the need for the requested home health care services because: Deconditioned w/ increased weakness I certify that my clinical findings support that this patient is homebound because: Unsafe to leave home unassisted Alejandro Williamson MD Oct 04, 2016 13:21
[2016-10-04] MEDS ORDERED: NITR0.4S SL (13:25)
[2016-10-04] MEDS ORDERED: PLAV75TA29 PO (13:25)
--- NOTE | 2016-10-04 13:53 | PD.CARD.PN ---
Subjective Subjective Remarks Feeling better. Only received about 375 ml IVF hydration yesterday because she refused it last night. Denies CP or SOB. Denies lightheadedness or weakness. Objective Medications Current Medications Medications (Trade) Dose Ordered Sig/Francisco Route PRN Reason Start Time Stop Time Status Last Admin Dose Admin Sodium Chloride (NS Flush) 2 ml BID IV FLUSH 10/03/16 09:00 10/04/16 09:19 Sodium Chloride (NS Flush) 2 ml UNSCH PRN IV FLUSH FLUSH AFTER USING IV ACCESS 10/03/16 02:30 Nitroglycerin (Nitrostat Sl) 0.4 mg Q5M PRN SL ANGINA 10/03/16 02:30 Acetaminophen (Tylenol) 500 mg Q4H PRN PO HEADACHE/pain 1 - 10 10/03/16 02:30 Ondansetron HCl (Zofran Inj) 4 mg Q6HR PRN IV PUSH NAUSEA OR VOMITING 10/03/16 02:30 Amlodipine Besylate (Norvasc) 5 mg DAILY PO 10/03/16 09:00 10/04/16 09:17 Clonidine (Catapres) 0.1 mg BID PO 10/03/16 09:00 10/04/16 09:15 Fenofibrate (Tricor) 145 mg DAILY PO 10/03/16 09:00 10/04/16 09:18 Fluoxetine HCl (PROzac) 20 mg DAILY PO 10/03/16 09:00 10/04/16 09:15 Pravastatin Sodium (Pravachol) 20 mg DAILY PO 10/03/16 09:00 10/04/16 09:15 Metoprolol Tartrate (Lopressor) 100 mg BID PO 10/03/16 09:00 10/04/16 09:17 Famotidine (Pepcid) 10 mg BID PO 10/03/16 09:00 10/04/16 09:17 Clopidogrel Bisulfate (Plavix) 75 mg DAILY PO 10/04/16 09:00 10/04/16 09:16 Hydrochlorothiazide (Microzide) 25 mg DAILY PO 10/03/16 16:00 10/04/16 09:19 Losartan Potassium (Cozaar) 50 mg BID PO 10/03/16 21:00 10/04/16 09:16 Enoxaparin Sodium (Lovenox Inj) 100 mg Q12H SQ 10/03/16 16:00 10/04/16 05:50 Hydralazine HCl (Apresoline) 25 mg Q8HR PRN PO SBP>160, DBP>90 10/03/16 15:45 Aspirin (Aspirin Chew) 81 mg DAILY PO 10/04/16 09:00 10/04/16 09:16 Vital Signs / I&O Vital Signs Date Time Temp Pulse Resp B/P (MAP) Pulse Ox O2 Delivery O2 Flow Rate FiO2 10/04/16 12:00 97.0 57 18 123/54 (77) 97 10/04/16 08:00 96.4 54 18 147/74 (98) 93 10/04/16 04:00 97.5 51 18 126/60 (82) 95 10/04/16 00:00 99.0 55 16 138/49 (78) 95 10/03/16 23:00 55 10/03/16 20:00 98.3 55 16 157/86 (109) 93 10/03/16 16:00 96.0 53 18 136/88 (104) 95 I/O 10/03/16 10/03/16 10/03/16 10/04/16 10/04/16 10/04/16 06:59 14:59 22:59 06:59 14:59 22:59 Intake Total 376 ml 100 ml Balance 376 ml 100 ml Intake Oral 240 ml 100 ml IV Total 136 ml # Voids 4 1 Physical Exam VSS, BP improved control. No JVD Lungs: CTA Heart S1, S2, 2/6 Systolic murmur MR. Ext: warm, well perfused. No edema. Neuro: Non-focal. Forgetful. Laboratory Laboratory Tests Test 10/03/16 19:10 10/04/16 05:45 Troponin I 0.51 NG/ML Blood Urea Nitrogen 38 MG/DL Creatinine 1.20 MG/DL Random Glucose 99 MG/DL Calcium Level 10.1 MG/DL Sodium Level 142 MEQ/L Potassium Level 3.9 MEQ/L Chloride Level 109 MEQ/L Carbon Dioxide Level 25.5 MEQ/L Anion Gap 8 MEQ/L Estimat Glomerular Filtration Rate 43 ML/MIN Assessment and Plan Problem List: (1) Arteriosclerotic heart disease (ASHD) ICD Codes: I25.10 - Atherosclerotic heart disease of [place] coronary artery without angina pectoris (2) Uncontrolled hypertension ICD Codes: I10 - Essential (primary) hypertension (3) Elevated troponin I level ICD Codes: R74.8 - Abnormal levels of other serum enzymes Status: Acute (4) Non-ST elevated myocardial infarction (non-STEMI) ICD Codes: I21.4 - Non-ST elevated myocardial infarction (non-STEMI) Status: Acute (5) Mitral regurgitation ICD Codes: I34.0 - Nonrheumatic mitral (valve) insufficiency (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 I suspect she is forgetting some of her meds at home. Cardiac markers are minimal criteria for NSTEMI. Probably due to her uncontrolled HTN probably heat ehuastion and dehydration. I will continue her IVF for anothe 500 ml today then D/C. If still feeling well and asymptomatic in AM tomorow OK to discharge home with home health. She may need more even more intensive help in assisted care environment soon. I will see her back in the office in 2 weeks. Code Status Full Discussed Condition With Patient, staffing program manager and physical therapist. Randall Ashby MD Oct 04, 2016 13:53
[2016-10-04 16:00] VITALS: BP 105/45; PULSE 50; RESP 18; TEMP 96; O2SAT 93
[2016-10-04 20:00] VITALS: BP 116/53; PULSE 58; PULSE 67; RESP 18; TEMP 97.1; O2SAT 94
[2016-10-05] VITALS (8 sets, daily range): BP systolic 99–133; BP diastolic 52–64; PULSE 48–93; RESP 18–22; TEMP 95.8–97.9; O2SAT 93–97
[2016-10-05 07:25] LABS: POTASSIUM 4.1 MEQ/L (3.5-5.1)
[2016-10-05 07:33] LABS: BICARBONATE 25.4 MEQ/L (21.0-32.0)
[2016-10-05] MEDS: FAMOTIDINE 20 MG TAB PO SCH ×2 (08:36→20:22)
[2016-10-05] MEDS: CLOPIDOGREL 75 MG TAB PO SCH (08:37)
[2016-10-05] MEDS: FLUoxetine HCL 20 MG CAP PO SCH (08:37)
[2016-10-05] MEDS: FENOFIBRATE 145 MG TAB PO SCH (08:38)
[2016-10-05] MEDS: PRAVASTATIN SOD 20 MG TAB PO SCH (08:38)
[2016-10-05] MEDS: cloNIDine HCL 0.1 MG TAB PO SCH ×2 (08:38→20:21)
[2016-10-05] MEDS: amLODIPine BESYLATE 5 MG TAB PO SCH (08:38)
[2016-10-05] MEDS: ASPIRIN 81 MG CHEW TAB PO SCH (08:39)
[2016-10-05] MEDS: METOPROLOL TARTRATE 100 MG TAB PO SCH ×2 (08:39→20:21)
[2016-10-05] MEDS: SODIUM CHLORIDE 0.9% FLUSH 10 ML FLUSH IV FLUSH SCH ×2 (08:40→20:21)
[2016-10-05] MEDS: ENOXAPARIN SODIUM 40 MG/0.4 ML SYRINGE SQ SCH (08:40)
[2016-10-05] MEDS ORDERED: SODIUM CHLOR 0.9% 1000 ML INJ 1,000 ML IV SCH (08:45)
--- NOTE | 2016-10-05 11:37 | HHI.PR ---
Subjective Remarks Follow-up [place]. Denies chest pain. Feels tired with worsening renal dysfunction. Denies shortness of breath. Discussed with RN and physical therapy Objective Vitals Vital Signs Date Time Temp Pulse Resp B/P (MAP) Pulse Ox O2 Delivery O2 Flow Rate FiO2 10/05/16 08:16 96.8 48 19 118/54 (75) 95 10/05/16 06:45 52 10/05/16 05:11 97.9 48 18 113/54 (73) 94 10/05/16 00:00 96.3 93 18 114/59 (77) 93 10/04/16 20:00 97.1 58 18 116/53 (74) 94 10/04/16 20:00 67 10/04/16 16:00 96.0 50 18 105/45 (65) 93 10/04/16 12:00 97.0 57 18 123/54 (77) 97 I/O 10/04/16 10/04/16 10/04/16 10/05/16 10/05/16 10/05/16 07:00 15:00 23:00 07:00 15:00 23:00 Intake Total 100 ml 360 ml 240 ml 350 ml Balance 100 ml 360 ml 240 ml 350 ml Intake Oral 100 ml 360 ml 240 ml 350 ml # Voids 1 1 2 # Bowel Movements 0 0 Result Diagram: 10/03/16 0030 10/05/16 0615 Objective Remarks Well-developed, well-nourished in no distress on room air No JVD no bruit Regular rate and rhythm with systolic murmur Equal in expansion clear to auscultation Abdomen soft nontender Extremities no edema no deformities Alert and oriented nonfocal No significant change in PE from previous Procedures Non- A/P Problem List: (1) Elevated troponin I level ICD Code: R74.8 - Abnormal levels of other serum enzymes Status: Acute (2) Near syncope ICD Code: R55 - Syncope and collapse Status: Acute (3) Hiatal hernia ICD Code: K44.9 - Hiatal hernia Status: Acute (4) HTN (hypertension) ICD Code: I10 - Essential (primary) hypertension Assessment and Plan (1) Elevated troponin I level due to acute coronary syndrome, non-ST elevation [place] Cardiology recommended medical management at this time. Continue to monitor Last cardiac evaluation 07/2013 Aspirin 325, Plavix, Lovenox, metoprolol, nitroglycerin as needed and statin (2) Near syncope Vaguely described secondary to cardiac event. We'll continue to follow on telemetry (3) Hiatal hernia Stable continue Pepcid (4) HTN (hypertension) continue metoprolol, amlodipine and clonidine Blood pressures improved on metoprolol, Norvasc, clonidine and as needed BP meds 5. Nausea and dizziness secondary to [place], uncontrolled hypertension and medicines. Antiemetics as needed. Neurochecks. Fall precautions and orthostatics 6. Acute on chronic kidney disease stage III secondary to dehydration and meds. We'll give additional 1 L normal saline and avoid nephrotoxins hold losartan and H CTZ Discharge Planning Not stable for discharge today Alejandro Williamson MD Oct 05, 2016 11:37
[2016-10-06 00:16] VITALS: BP 129/59; PULSE 46; RESP 18; TEMP 96.9; O2SAT 93
[2016-10-06 04:36] VITALS: BP 137/58; PULSE 53; RESP 18; TEMP 96; O2SAT 94
[2016-10-06 08:00] VITALS: BP 187/87; PULSE 58; RESP 21; TEMP 97.8; O2SAT 96
[2016-10-06] MEDS: METOPROLOL TARTRATE 100 MG TAB PO SCH (08:47)
[2016-10-06] MEDS: cloNIDine HCL 0.1 MG TAB PO SCH (08:47)
[2016-10-06] MEDS: ASPIRIN 81 MG CHEW TAB PO SCH (08:47)
[2016-10-06] MEDS: amLODIPine BESYLATE 5 MG TAB PO SCH (08:48)
[2016-10-06] MEDS: FAMOTIDINE 20 MG TAB PO SCH (08:48)
[2016-10-06] MEDS: FENOFIBRATE 145 MG TAB PO SCH (08:48)
[2016-10-06] MEDS: FLUoxetine HCL 20 MG CAP PO SCH (08:49)
[2016-10-06] MEDS: CLOPIDOGREL 75 MG TAB PO SCH (08:49)
[2016-10-06] MEDS: PRAVASTATIN SOD 20 MG TAB PO SCH (08:49)
[2016-10-06] MEDS: ENOXAPARIN SODIUM 40 MG/0.4 ML SYRINGE SQ SCH (08:50)
[2016-10-06] MEDS: SODIUM CHLORIDE 0.9% FLUSH 10 ML FLUSH IV FLUSH SCH (08:53)
[2016-10-06 08:57] LABS: POTASSIUM 4.1 MEQ/L (3.5-5.1)
[2016-10-06 09:02] LABS: BICARBONATE 21.7 MEQ/L (21.0-32.0); MAGNESIUM 2.1 MG/DL (1.5-2.5)
[2016-10-06] MEDS ORDERED: AMLO5 PO (09:50)
[2016-10-06] MEDS ORDERED: amLODIPine BESYLATE 5 MG TAB PO ONE (10:00)
[2016-10-06] MEDS ORDERED: ZOFR4TAB PO (10:46)
[2016-10-06 11:59] VITALS: BP 104/52; PULSE 50; RESP 18; TEMP 97.3; O2SAT 92
[2016-10-06 12:00] VITALS: BP 104/52; PULSE 50; RESP 18; TEMP 97.3; O2SAT 92
--- NOTE | 2016-10-06 12:04 | HHI.PR ---
Subjective Remarks Follow-up acute kidney injury. She is voiding. Complains of nausea is not a new problem. Denies abdominal pain. She had a bowel movement yesterday. Denies headache, dizziness, chest pain and shortness of breath. BP slightly elevated, Norvasc has been increased to 10 mg daily. Discussed with RN, patient can be discharged home if systolic blood pressure less than 160. Objective Vitals Vital Signs Date Time Temp Pulse Resp B/P (MAP) Pulse Ox O2 Delivery O2 Flow Rate FiO2 10/06/16 11:59 97.3 50 18 104/52 (69) 92 10/06/16 08:00 97.8 58 21 187/87 (120) 96 10/06/16 04:36 96.0 53 18 137/58 (84) 94 10/06/16 00:16 96.9 46 18 129/59 (82) 93 10/05/16 20:18 96.8 55 22 133/64 (87) 94 10/05/16 20:15 56 10/05/16 18:47 96.5 52 19 99/52 (68) 97 10/05/16 12:18 95.8 50 19 105/62 (76) 94 I/O 10/05/16 10/05/16 10/05/16 10/06/16 10/06/16 10/06/16 07:00 15:00 23:00 07:00 15:00 23:00 Intake Total 450 ml 250 ml Balance 450 ml 250 ml Intake Oral 450 ml 250 ml # Voids 1 2 1 Result Diagram: 10/03/16 0030 10/06/16 0815 Objective Remarks Well-developed, well-nourished in no distress on room air No JVD no bruit Regular rate and rhythm with systolic murmur Equal in expansion clear to auscultation Abdomen soft nontender Extremities no edema no deformities Alert and oriented nonfocal Procedures Non- A/P Problem List: (1) Elevated troponin I level ICD Code: R74.8 - Abnormal levels of other serum enzymes Status: Acute (2) Near syncope ICD Code: R55 - Syncope and collapse Status: Acute (3) Hiatal hernia ICD Code: K44.9 - Hiatal hernia Status: Acute (4) HTN (hypertension) ICD Code: I10 - Essential (primary) hypertension Assessment and Plan (1) Elevated troponin I level due to acute coronary syndrome, non-ST elevation [place] Cardiology recommended medical management at this time. Continue to monitor Last cardiac evaluation 07/2013 Aspirin 325, Plavix, Lovenox, metoprolol, nitroglycerin as needed and statin (2) Near syncope Vaguely described secondary to cardiac event. We'll continue to follow on telemetry (3) Hiatal hernia Stable continue Pepcid (4) HTN (hypertension) continue metoprolol, amlodipine and clonidine Blood pressures improved on metoprolol, Norvasc, clonidine and as needed BP meds. Increase Norvasc for better control 5. Nausea and dizziness secondary to MD, uncontrolled hypertension and medicines. Improved. Antiemetics as needed. Neurochecks. Fall precautions and orthostatics 6. Acute on chronic kidney disease stage III secondary to dehydration and meds. Improving status post additional 1 L normal saline and avoid nephrotoxins hold losartan and H CTZ. Repeat BMP and mag in one week Discharge Planning Stable for discharge Alejandro Williamson MD Oct 06, 2016 12:04
--- NOTE | 2016-10-06 12:06 | HHI.DS ---
Discharge Summary Admission Date Oct 03, 2016 at 14:49 Discharge Date: Oct 06, 2016 Admitting Diagnosis chest pain, elevated troponin I (1) Elevated troponin I level ICD Code: R74.8 - Abnormal levels of other serum enzymes Diagnosis: Principal Status: Acute (2) Near syncope ICD Code: R55 - Syncope and collapse Diagnosis: Principal Status: Acute (3) Hiatal hernia ICD Code: K44.9 - Hiatal hernia Diagnosis: Secondary Status: Acute (4) HTN (hypertension) ICD Code: I10 - Essential (primary) hypertension Diagnosis: Principal Procedures None Brief History - From Admission Patient is an 86-year-old female who was outside yesterday and had some right sided chest pain which was sharp and brief and resolve spontaneously. She went outside to do some work around her home and was weak and fell to the ground without losing consciousness. A friend found her and brought her daughter to check on her and then they came to the emergency room. Patient admits that she has been feeling weak and has been having difficulty keeping up with her home medications. She takes blood pressure medicines on arrival her blood pressure was 216/105. She did not take her blood pressure medicines all day because she was outside and could not get back in the house. Here she is alert and oriented without any complaints of chest pain or shortness of breath or dizziness or dyspnea and there is no new issues overnight. Unfortunately patient has had elevated cardiac enzymes and she is arrived. There is no evidence of rhabdomyolysis but her cardiac troponin has steadily increased without complaints of chest pain without evidence of ischemia on her EKG CBC/BMP: 10/03/16 0030 10/06/16 0815 Significant Findings Laboratory Tests Test 10/03/16 19:10 10/04/16 05:45 10/05/16 06:15 10/06/16 08:15 Troponin I 0.51 NG/ML (0.02-0.05) Blood Urea Nitrogen 38 MG/DL (7-18) 53 MG/DL (7-18) 48 MG/DL (7-18) Creatinine 1.20 MG/DL (0.50-1.00) 2.10 MG/DL (0.50-1.00) 1.50 MG/DL (0.50-1.00) Chloride Level 109 MEQ/L (98-107) 110 MEQ/L (98-107) Estimat Glomerular Filtration Rate 43 ML/MIN (>89) 22 ML/MIN (>89) 33 ML/MIN (>89) Calcium Level 10.2 MG/DL (8.5-10.1) Imaging Last Impressions Chest X-Ray 10/02/16 4014 Signed Impressions: Service Date/Time: Monday, October 03, 2016 00:11 - CONCLUSION: 1. Moderate to large hiatal hernia with basal atelectasis. Damian Waterman MD PE at Discharge Well-developed, well-nourished in no distress on room air No JVD no bruit Regular rate and rhythm with systolic murmur Equal in expansion clear to auscultation Abdomen soft nontender Extremities no edema no deformities Alert and oriented nonfocal Hospital Course (1) Elevated troponin I level due to acute coronary syndrome, non-ST elevation ME Cardiology recommended medical management at this time. Continue to monitor Last cardiac evaluation 07/2013 Aspirin 325, Plavix, Lovenox, metoprolol, nitroglycerin as needed and statin (2) Near syncope Vaguely described secondary to cardiac event. We'll continue to follow on telemetry (3) Hiatal hernia Stable continue Pepcid (4) HTN (hypertension) continue metoprolol, amlodipine and clonidine Blood pressures improved on metoprolol, Norvasc, clonidine and as needed BP meds. Increase Norvasc for better control 5. Nausea and dizziness secondary to ME, uncontrolled hypertension and medicines. Improved. Antiemetics as needed. Neurochecks. Fall precautions and orthostatics 6. Acute on chronic kidney disease stage III secondary to dehydration and meds. Improving status post additional 1 L normal saline and avoid nephrotoxins hold losartan and H CTZ. Repeat BMP and mag in one week Pt Condition on Discharge: Stable Discharge Disposition: Disch w/ Home Health Serv Discharge Time: > 30 minutes Discharge Instructions DIET: Follow Instructions for: Heart Healthy Diet Activities you can perform: Regular-No Restrictions Activities to Avoid: Driving Follow up Referrals: Cardiology - 1 Week PCP Follow-up - 1 Week New Orders: BASIC METABOLIC PROF - 1 Week New Medications: Ondansetron (Zofran) 4 Mg Tab 4 MG PO Q8HR PRN for NAUSEA OR VOMITING, #20 TAB 0 Refills Amlodipine (Norvasc) 5 Mg Tab 10 MG PO DAILY for Blood Pressure Management, #30 TAB Clopidogrel (Plavix) 75 Mg Tab 75 MG PO DAILY for Prevent Blood Clot, #30 TAB Nitroglycerin SL (Nitrostat SL) 0.4 Mg Subl 0.4 MG SL Q5M PRN for ANGINA, #30 TAB Continued Medications: Aspirin (Aspirin) 81 Mg Chew 81 MG CHEW DAILY, TAB 0 Refills Clonidine (Clonidine) 0.1 Mg Tab 0.1 MG PO BID for Blood Pressure Management, #60 TAB 0 Refills Fenofibrate (Fenofibrate) 145 Mg Tab 145 MG PO DAILY, #30 TAB 0 Refills Fluoxetine (Fluoxetine) 20 Mg Capsule 20 MG PO DAILY, #30 CAP 0 Refills Lovastatin (Lovastatin) 20 Mg Tab 20 MG PO DAILY for Cholesterol Management, #30 TAB 0 Refills Metoprolol Tartrate (Metoprolol Tartrate) 50 Mg Tab 100 MG PO BID, #60 TAB 0 Refills Multiple Vitamins W/ Minerals (Preservision Areds) 1 Tab Unknown Dose PO DIRECTED for Nutritional Supplement, TAB Discontinued Medications: Amlodipine (Amlodipine) 5 Mg Tab 5 MG PO DAILY for Blood Pressure Management, #30 TAB 0 Refills Losartan-Hydrochlorothiazide (Losartan-Hydrochlorothiazide) 50-12.5 Mg Tab 1 TAB PO DAILY for Blood Pressure Management, #30 TAB 0 Refills Potassium Chloride ER (Potassium Chloride ER) 10 Meq Cap 10 MEQ PO BID for Electrolyte Replacement, #60 CAP 0 Refills Additional Information I spent 35 minutes [id number] with the patient or on the olea discussing the patient's disposition, prognosis, and plan of care with patient's caregivers. Over half the time spent was devoted to counseling the patient regarding placement in coordinating care with caregivers and case management. Alejandro Williamson MD Oct 06, 2016 12:06
[2016-10-07] MEDS ORDERED: amLODIPine BESYLATE 5 MG TAB PO SCH (09:00)
== END 2016-10-06 15:38 | disposition home health service (06) | DRG 281 ==
LOC: PHED 23:50 → INTOOBSV 10-03 02:21 → PHEDA 10-03 02:21 → PH3A 10-03 05:03 → OBSVTOIN 10-03 14:49
PROVIDERS: ADMIT Internal Medicine; ATTEND Internal Medicine
DX: I21.4 Non-ST elevation (NSTEMI) myocardial infarction (principal); N17.9 Acute kidney failure, unspecified; E86.0 Dehydration; I13.10 Hypertensive heart and chronic kidney disease without heart failure, with stage 1 through stage 4 chronic kidney disease, or unspecified chronic kidney disease; I25.2 Old myocardial infarction; Z79.82 Long term (current) use of aspirin; Z85.828 Personal history of other malignant neoplasm of skin; K21.9 Gastro-esophageal reflux disease without esophagitis; E78.5 Hyperlipidemia, unspecified; F41.9 Anxiety disorder, unspecified; F32.9 Major depressive disorder, single episode, unspecified; K44.9 Diaphragmatic hernia without obstruction or gangrene; I25.10 Atherosclerotic heart disease of native coronary artery without angina pectoris; Z77.22 Contact with and (suspected) exposure to environmental tobacco smoke (acute) (chronic); T67.5XXA Heat exhaustion, unspecified, initial encounter; I34.0 Nonrheumatic mitral (valve) insufficiency; F09 Unspecified mental disorder due to known physiological condition; N18.3 Chronic kidney disease, stage 3 (moderate); H91.90 Unspecified hearing loss, unspecified ear; M19.90 Unspecified osteoarthritis, unspecified site
CPT/HCPCS: 71020; 80048; 80053; 82550; 83735; 83880; 84484; 85025; 93005; J1644; J1650; J2405; J7030

== ENCOUNTER → 2017-01-31 | Outpatient (CLI) | payer MEDICARE, OTHER ==
[~2017-01-31] MED LIST changes: +AMLO5 PO; -AMLO5TAB2 PO; +ASPI-516 CHEW; -ASPI1TAB69 PO; -CALC500T42 PO; -FERR325T PO; +FLUO20CA12 PO; -LOSA50TA2 PO; -MACR100C2 PO; +NITR0.4S SL; +PLAV75TA29 PO; -POTA10CA PO; -VITA500T PO; +ZOFR4TAB PO
[2017-01-31 14:15] LABS: BLOOD, URINE NEG (NEG); GLUCOSE,URINE NEG (NEG); HYALINE CAST, URINE 3 /lpf (RARE); KETONE, URINE NEG (NEG); MUCUS URINE FEW /lpf (OCC); NITRITE,URINE NEG (NEG); PH, URINE 5.5 (5.0-8.5); SQUAMOUS EPITHELIAL CELL URINE 1 /hpf (0-5); URINE COLOR YELLOW (YELLW/STRAW)
[2017-01-31 14:22] LABS: BICARBONATE 25.1 MEQ/L (21.0-32.0); POTASSIUM 4.2 MEQ/L (3.5-5.1)
[2017-01-31 14:23] LABS: AUTOMATED NEUTROPHIL # 4.3 TH/MM3 (1.8-7.7); BASOPHIL # 0.1 TH/MM3 (0-0.2); BASOPHIL % 0.8 % (0.0-2.0); EOSINOPHIL # 0.3 TH/MM3 (0-0.4); EOSINOPHIL % 4.8 % (0.0-4.0); HEMATOCRIT 40.6 % (35.0-46.0); HEMO FLAGS DIFF FINAL; LYMPHOCYTE # 1.2 TH/MM3 (1.0-4.8); MEAN CORPUSCULAR HEMOGLOBIN 29.4 PG (27.0-34.0); MEAN CORPUSCULAR HGB CONC 33.8 % (32.0-36.0); MONO % 7.5 % (0.0-8.0); NEUT % 67.9 % (16.0-70.0); PLATELET COUNT 287 TH/MM3 (150-450); RED BLOOD COUNT 4.67 MIL/MM3 (4.00-5.30); RED CELL DISTRIBUTION WIDTH 13.4 % (11.6-17.2); URINE TOTAL PROTEIN TIMED 14.2 MG/DL; WHITE BLOOD COUNT 6.3 TH/MM3 (4.0-11.0)
[2017-01-31 14:34] LABS: HDL CHOLESTEROL 55.1 MG/DL (40.0-60.0); KAPPA LAMBDA RATIO 1.97 (1.57-3.93)
[2017-01-31 14:41] LABS: TOTAL PROTEIN SPE 6.7 GM/DL (6.0-7.6)
[2017-02-02 23:51] LABS: KAPPA/LAMBDA FREE 1.86 (0.26-1.65)
[2017-02-05 21:35] LABS: ALBUMIN SPE 4.25 GM/DL (3.50-5.00); ALPHA 1 GLOBULIN 0.15 GM/DL (0.11-0.29); ALPHA 2 GLOBULIN 0.76 GM/DL (0.22-1.00); BETA GLOBULINS (SPE) 0.79 GM/DL (0.53-1.03)
== END ==
LOC: PLAB 09:31
PROVIDERS: ATTEND Internal Medicine Nephrology
DX: E78.00 Pure hypercholesterolemia, unspecified (principal); I25.10 Atherosclerotic heart disease of native coronary artery without angina pectoris; I34.0 Nonrheumatic mitral (valve) insufficiency; E83.52 Hypercalcemia; I12.9 Hypertensive chronic kidney disease with stage 1 through stage 4 chronic kidney disease, or unspecified chronic kidney disease; N18.3 Chronic kidney disease, stage 3 (moderate); E55.9 Vitamin D deficiency, unspecified
CPT/HCPCS: 36415; 80061; 80069; 81001; 82570; 82652; 82784; 83721; 83883; 83970; 84156; 84165; 84450; 84460; 85025; 86160; 86162; 86334; 86335; 86803